=== PATIENT | male | born 1955 | race Caucasian/White ===

== ENCOUNTER 2022-11-05 11:09 | Outpatient (CLI) | payer MEDICARE, OTHER | END 2022-11-05 11:10 | disposition home or self-care (01) | LOC: MADRAD 11:09 | PROVIDERS: ATTEND Nurse Practitioner Family | DX: J18.9 Pneumonia, unspecified organism (principal) | CPT/HCPCS: 71046 ==

== ENCOUNTER 2024-10-20 12:00 | Outpatient (CLI) | payer OTHER ==
[2024-10-20 13:39] LABS: ALT (SGPT) 67 U/L (Less than 45); AST (SGOT) 52 U/L (11-34); Albumin 4.3 g/dL (3.1-4.5); Alkaline Phosphatase 61 U/L (40-110); Anion Gap 16 mmol/L (10-20); BUN (Urea Nitrogen) 20 mg/dL (8.4-25.7); Bilirubin, Total 0.2 mg/dL (0.3-1.2); Calc. Creatinine Clearance 0 mL/min (70-130); Calcium 9.7 mg/dL (7.8-10.44); Carbon Dioxide 25 mmol/L (23-31); Chloride 102 mmol/L (98-107); Globulin 2.9 g/dL (2.4-3.5); Glucose 123 mg/dL (80-115); Potassium 4.8 mmol/L (3.5-5.1); Sodium 138 mmol/L (136-145)
[2024-10-20 17:02] LABS: Gamma GT (GGT) 31 U/L (12-64)
== END 2024-10-20 12:01 | disposition home or self-care (01) ==
LOC: MADLAB 12:00
PROVIDERS: ATTEND Family Medicine
DX: F10.129 Alcohol abuse with intoxication, unspecified (principal)
CPT/HCPCS: 36415; 80053; 82977

== ENCOUNTER 2024-11-03 12:55 | Outpatient (CLI) | payer OTHER ==
[2024-11-03 13:31] LABS: ALT (SGPT) 47 U/L (Less than 45); AST (SGOT) 40 U/L (11-34); Albumin 4.5 g/dL (3.1-4.5); Alkaline Phosphatase 62 U/L (40-110); Anion Gap 15 mmol/L (10-20); BUN (Urea Nitrogen) 13 mg/dL (8.4-25.7); Bilirubin, Total 0.6 mg/dL (0.3-1.2); Calc. Creatinine Clearance 0 mL/min (70-130); Calcium 9.9 mg/dL (7.8-10.44); Carbon Dioxide 29 mmol/L (23-31); Chloride 100 mmol/L (98-107); Globulin 3.1 g/dL (2.4-3.5); Glucose 102 mg/dL (80-115); Potassium 4.6 mmol/L (3.5-5.1); Sodium 139 mmol/L (136-145)
== END 2024-11-03 12:56 | disposition home or self-care (01) ==
LOC: MADLAB 12:55
PROVIDERS: ATTEND Family Medicine
DX: F10.129 Alcohol abuse with intoxication, unspecified (principal)
CPT/HCPCS: 36415; 80053; 82977